=== PATIENT | male | born 1985 | race American Indian/Alaskan Native ===

== ENCOUNTER 2018-04-08 17:09 | Emergency (ER) | payer OTHER ==
[2018-04-08 17:55] VITALS: BP 130/92
[2018-04-08 22:08] LABS: Bilirubin,Urine NEG (Negative); Blood,Urine NEG (Negative); Color,Urine Yellow (Yellow); Mucus,Urine 2+ /HPF
--- NOTE | 2018-04-09 00:08 | Emergency Department Report ---
ED General Adult HPI - General Chief complaint: Back Pain/Injury Stated complaint: TREATMENT/BACK PAIN Time Seen by Provider: 04/09/18 00:07 Source: patient Mode of arrival: Ambulatory Limitations: No Limitations - History of Present Illness Initial comments: 33-year-old -[place] male comes in complaining of lower back pain 1 week. Patient reports he has previous back injury but has not injured it recently. Patient reports that his back pain is intermittent. He's been taking Tylenol last dose was Monday. 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 Patient comes in reporting he wants to be tested for STDs. Patient denies any pain on urination denies any penile discharge denies any lesions on the penis. -: week(s) (1) Location: back Radiation: non-radiation Severity scale (0 -10): 7 Quality: aching Consistency: intermittent Improves with: rest Worsens with: other Associated Symptoms: denies other symptoms Treatments Prior to Arrival: other (standing on his feet for long period of time Tylenol 2 days ago) - Related Data Previous Rx's Medication Instructions Recorded Last Taken Type Ibuprofen [Motrin 600 MG tab] 600 mg PO Q8H PRN #30 tablet 04/09/18 Unknown Rx Allergies Allergy/AdvReac Type Severity Reaction Status Date / Time No Known Allergies Allergy Unverified 04/08/18 21:11 ED Review of Systems ROS: Stated complaint: TREATMENT/BACK PAIN Other details as noted in HPI Comment: All other systems reviewed and negative Musculoskeletal: back pain ED Past Medical Hx - Past Medical History Hx GERD: Yes Additional medical history: ulcers - Surgical History Additional Surgical History: Endoscopy - Social History Smoking Status: Current Some Day Smoker Substance Use Type: Alcohol - Medications Home Medications: Home Medications Medication Instructions Recorded Confirmed Last Taken Type Ibuprofen [Motrin 600 MG tab] 600 mg PO Q8H PRN #30 tablet 04/09/18 Unknown Rx ED Physical Exam - General Limitations: No Limitations General appearance: alert, in no apparent distress - Head Head exam: Present: atraumatic, normocephalic - Extremities Exam Extremities exam: Present: normal inspection, full ROM. Absent: tenderness - Back Exam Back exam: Present: full ROM. Absent: tenderness, muscle spasm, paraspinal tenderness, vertebral tenderness - Neurological Exam Neurological exam: Present: alert, oriented X3 - Psychiatric Psychiatric exam: Present: normal affect, normal mood - Skin Skin exam: Present: warm, dry, intact, normal color. Absent: rash ED Course Vital Signs 04/08/18 17:47 Temperature 98.7 F Pulse Rate 86 Respiratory 16 Rate Blood Pressure 130/92 O2 Sat by Pulse 97 Oximetry ED Medical Decision Making - Medical Decision Making Patient has been seen by this provider fast track. Patient's given Toradol 30 mg IM for pain management. Discussed the patient he can follow up at the [facility] for STD check since he has no symptoms. Will discharge patient on ibuprofen and for him to follow-up with his primary care provider or if outside Medical Center. Patient diagnosed with lower back pain Critical care attestation.: If time is entered above; I have spent that time in minutes in the direct care of this critically ill patient, excluding procedure time. ED Disposition Disposition: DC-01 TO HOME OR SELFCARE Is pt being admited?: No Does the pt Need Aspirin: No Condition: Stable Instructions: Acute Low Back Pain (ED) Additional Instructions: Please take pain medication as needed. If her symptoms persist please follow up with [facility] or your primary care provider. I recommend Joanna also follow-up at the health [facility] for STD checks. Prescriptions: Ibuprofen [Motrin 600 MG tab] 600 mg PO Q8H PRN #30 tablet PRN Reason: Pain Referrals: PRIMARY CARE, [Primary Care Provider] - 3-5 Days [facility] [Provider Group] - 3-5 Days [facility] [Outside] - 3-5 Days [facility]Note 3[facility] [Outside] - 3[facility]5 Days [facility] [Outside[facility] - [facility] Days [facility] [Outside] - 3-5 Days
[2018-04-09] MEDS ORDERED: TORADOL IM ONE (01:12)
[2018-04-09] MEDS ORDERED: TORADOL ONE (01:13)
== END 2018-04-09 01:40 | disposition home or self-care (01) ==
LOC: ED 17:09
DX: M54.5 Low back pain (principal); K21.9 Gastro-esophageal reflux disease without esophagitis; F17.200 Nicotine dependence, unspecified, uncomplicated
CPT/HCPCS: 81001; 96372; 99283; J1885